=== PATIENT | female | born 1935 | race Hispanic/Latino ===

== ENCOUNTER 2018-12-02 16:05 | Inpatient (IN) | payer MEDICARE, OTHER ==
[~2018-12-02] VITALS: Ht 152.4 cm; Wt 54.7 kg
[2018-12-02] MEDS ORDERED: SODIUM CHLORIDE 0.9% 1000ML 1,000 ML IV STA (16:29)
--- NOTE | 2018-12-02 16:30 | NUR ---
RECEIVED REPORT FROM TRIAGE NURSE TO ASSUME PTS CARE. PT INTO ER6. GOWNED AND PLACED ON THE MONITOR
[2018-12-02] MEDS ORDERED: [UNRECOGNIZED DRUG - OTHER] PO (16:36)
[2018-12-02] MEDS ORDERED: NEXIUM40 MG PO (16:36)
[2018-12-02 17:27] LABS: CLARITY,URINE CLOUDY (CLEAR); COLOR,URINE YELLOW (YELLOW); KETONES,URINE TRACE (NEGATIVE); LEUKOCYTE ESTERASE ,URINE TRACE (NEGATIVE); NITRITE,URINE POSITIVE (NEGATIVE); PROTEIN,URINE DIPSTICK NEGATIVE (NEGATIVE); URINE UROBILINOGEN 4 mg/dL (0.2 - 1)
[2018-12-02 17:28] LABS: BILIRUBIN,URINE 1+ (NEGATIVE)
[2018-12-02 17:48] LABS: BACTERIA,URINE MANY /HPF; EPITHELIAL CELLS,URINE MODERATE /LPF; RBC,URINE 0-5 /HPF (0-5); WBC,URINE (MAN) 0-5 /HPF (0-5)
--- NOTE | 2018-12-02 18:30 | NUR ---
LAB CALLED AND SAID THAT ALL THE PATIENT BLOOD WE SENT WAS HEMOLYZED. DOC CHARGE NURSE RE-REID THE LABS
[2018-12-02 18:40] LABS: BASOPHILS # (AUTO) 0.1 (0.0-0.1); BASOPHILS % 0.6 % (0.0-1.0); EOSINOPHILS % 0.4 % (0.0-6.0); HEMATOCRIT 39.2 % (34.2-44.1); HEMOGLOBIN 13.6 g/dL (12.0-16.0); LYMPHOCYTES # (AUTO) 1.3 (1.0-3.2); LYMPHOCYTES % 15.2 % (18.0-39.1); MEAN CORPUSCULAR HEMOGLOBIN 30.6 pg (28-32); MEAN CORPUSCULAR HGB CONC 34.7 g/dL (31-35); MEAN CORPUSCULAR VOLUME 88.3 fL (81-99); MONOCYTES # (AUTO) 0.7 (0.2-0.8); MONOCYTES % 8.2 % (4.4-11.3); NEUTROPHILS # (AUTO) 6.1 (2.1-6.9); NEUTROPHILS % 73.7 % (38.7-80.0); PLATELET COUNT 247 x10e3/uL (140-360); RED BLOOD COUNT 4.44 x10e6/uL (3.6-5.1); RED CELL DISTRIBUTION WIDTH 13.6 % (11.7-14.4)
[2018-12-02 19:02] LABS: ALBUMIN 2.8 g/dL (3.5-5.0); ALBUMIN/GLOBULIN RATIO 0.9 (0.8-2.0); ANION GAP 18.8 mmol/L (8-16); CALCIUM 8.3 mg/dL (8.4-10.2); CREATININE, SERUM 0.91 mg/dL (0.57-1.11)
[2018-12-02 19:09] LABS: POTASSIUM 2.8 mmol/L (3.5-5.1)
[2018-12-02] MEDS ORDERED: POTASSIUM CHLORIDE 20 MEQ TAB CR PO ONE (19:15)
--- NOTE | 2018-12-02 21:04 | Diagnostic Imaging Report ---
EXAM: CT of the abdomen and pelvis WITH contrast HISTORY: Lower abdominal pain, diarrhea COMPARISON: None. TECHNIQUE: The abdomen and pelvis were scanned utilizing a multidetector helical scanner. Coronal and sagittal reformats are provided. PROTOCOL: Routine IV CONTRAST: 100 cc of Isovue-370. ORAL CONTRAST: None, which limits sensitivity and specificity of the exam. RADIATION DOSE: Total DLP: 510.61 mGy*cm Estimated effective dose: (DLP x 0.015 x size factor) Dose modulation, iterative reconstruction, and/or weight based adjustment of the mA/kV was utilized to reduce the radiation dose to as low as reasonably achievable. COMPLICATIONS: None FINDINGS: LOWER THORAX: Mild bibasilar atelectasis. A large hiatal hernia containing the proximal stomach. HEPATOBILIARY: No mass. No biliary dilation. The gallbladder is markedly distended, measuring nearly 5 cm in greatest diameter. SPLEEN: No splenomegaly. PANCREAS: No focal masses or ductal dilatation. Diffuse parenchymal atrophy. ADRENALS: No discrete adrenal nodule. KIDNEYS/URETERS: No hydronephrosis, stones, or definite solid mass lesions. 4.2 cm simple appearing cyst near the superior pole of the right kidney. Additional too small to characterize hypodensities in both kidneys likely reflect additional small cyst. PELVIC ORGANS/BLADDER: The visualized pelvic organs appear unremarkable. GI TRACT: Fluid within the lumen of the distal colon with mucosal enhancement. No bowel dilation. The appendix is normal. PERITONEUM / RETROPERITONEUM: No free air or fluid. LYMPH NODES: No pathologically enlarged lymph node. VESSELS: Diffuse scattered atherosclerotic vascular calcifications. BONES: Diffuse severely decreased mineralization of the osseous structures limits bone detail. Multilevel moderate to severe degenerative changes of the axial skeleton. SOFT TISSUES: Diffuse muscle atrophy. IMPRESSION: 1. Findings which could be seen in the setting of a colitis. 2. Large hiatal hernia. 3. Nonspecific marked distention of the gallbladder. If symptoms may be attributable to gallbladder, recommend a gallbladder ultrasound for further evaluation. 4. Severe bone demineralization. Signed by: Dr. Tristian Headley D.O., M.M.M. on 12/02/2018 9:01 PM
[2018-12-02] MEDS ORDERED: ONDANSETRON HCL INJ 2MG/ML 2ML 2 MG/ML VIAL IV PRN (22:00)
[2018-12-02] MEDS ORDERED: KCL 20MEQ/.9 SOD CHL 1,000 ML IV ONE (22:00)
[2018-12-02] MEDS: METRONIDAZOLE 500MG/NS 100ML 100 ML IV SCH (22:00)
[2018-12-02] MEDS ORDERED: IOPAMIDOL 370 MG/ML 200 ML INFUS..BTL INJ ONE (22:03)
[2018-12-02] MEDS ORDERED: SODIUM CHLORIDE 0.9% 50ML 50 ML ONE (22:03)
--- OUTSIDE RECORDS SUMMARY | 2018-12-02 22:27 | XMS REPORT ---
Author Author [facility] Address Unknown Phone Unavailable Care Team Providers Care Forest Fire Prevention Manager Name Role Phone Socorro VALENZUELA Unavailable Unavailable Problems This patient has no known problems. Allergies, Adverse Reactions, Alerts This patient has no known allergies or adverse reactions. Medications This patient has no known medications. Results Test Description Test Time Test Comments Text Results Atomic Results Result Comments CT ABDOMEN/PELVIS W 2018-12-02 20:51:00 [facility] [address] [address] Patient Name: ELSIE PALAFOX MR #: [id number] : 1935 Age/Sex: 83/F Req #: [id number] Adm Physician: Ordered by: RANDAL BRANTLEY CUT OUT AND MARKING MACHINE OPERATOR Report #: [id number] Location: ER Room/Bed: Procedure: [id number] CT/CT ABDOMEN/PELVIS W Exam Date: 12/02/18 Exam Time: 1810 REPORT STATUS: Signed EXAM: CT of the abdomen and pelvis WITH contrast HISTORY: Lower abdominal pain, diarrhea COMPARISON: None. TECHNIQUE: The abdomen and pelvis were scanned utilizing a multidetector helical scanner. Coronal and sagittal reformats are provided. PROTOCOL: Routine IV CONTRAST: 100 cc of Isovue-370. ORAL CONTRAST: None, which limits sensitivity and specificity of the exam. RAD IATION DOSE: Total DLP: 510.61 mGy*cm Estimated effective dose: (DLP x 0.015 x size factor) Dose modulation, iterative reconstruction, and/or weight based adjustment of the mA/kV was utilized to reduce the radiation dose to as low as reasonably achievable. COMPLICATIONS: None FINDINGS: LOWER THORAX: Mild bibasilar atelectasis. A large hiatal hernia containing the proximal stomach. HEPATOBILIARY: No mass. No biliary dilation. The gallbladder is markedly distended, measuring nearly 5 cm in greatest diameter. SPLEEN: No splenomeg iva. PANCREAS: No focal masses or ductal dilatation. Diffuse parenchymal atrophy. ADRENALS: No discrete adrenal nodule. KIDNEYS/URETERS: No hydronephrosis, stones, or definite solid mass lesions. 4.2 cm simple appearing cyst near the superior pole of the right kidney. Additional too small to characterize hypodensities in both kidneys likely reflect additional small cyst. PELVIC ORGANS/BLADDER: The visualized pelvic organs appear unremarkable. GI TRACT: Fluid within the lumen of the distal colon with mucosal enhancement. No bowel dilation. The appendix is normal. PERITONEUM / RETROPERITONEUM: No free air or fluid. LYMPH NODES: No pathologically enlarged lymph node. VESSELS: Diffuse scattered atherosclerotic vascular calcifications. BONES: Diffuse severely decreased mineralization of the osseous structures limits bone detail. Multilevel moderate to severe degenerative changes of the axial skeleton. SOFT TISSUES: Diffuse muscle atrophy. IMPRESSION: 1. Findings which could be seen in the setting of a colitis. 2. Large hiatal hernia. 3. Nonspecific marked distention of the gallbladder. If symptoms may be attributable to gallbladder, recommend a gallbladder ultrasound for further evaluation. 4. Severe bone demineralization. Signed by: Dr. Oneil Headley D.O., M.M.M. on 12/02/2018 9:01 PM Dictated By: ONEIL HEADLEY DO 00 Transcribed By: MICHAEL on 12/02/182100 COPY TO: RANDAL BRANTLEY NP
[2018-12-02 22:50] VITALS: BP 96/53
--- NOTE | 2018-12-02 22:50 | NUR ---
patient recieved to room 296 via wheelchair from the er. vs stable. no c/o pain noted at this time. ivf initiated per orders. patient ambulatory to bathroom with assistance. patient voids without difficulty. admit assessment/history obtained. granddaughter at the bedside. granddaughter not aware of pneumonia and flu vaccines. says she will verify this with patients daughter tomorrow. side rails up x 3. bed alarm on for safety and granddaughter will remain at bedside tonight.patient/family instructed to call for assistance when needed.
[2018-12-02] MEDS: LEVOFLOXACIN 500MG/D5W 100ML IV SCH (23:10)
--- NOTE | 2018-12-02 23:25 | Diagnostic Imaging Report ---
EXAM: Right Upper Quadrant Ultrasound INDICATION: ^abdominal pain ^[id number] ^2234 ^Y COMPARISON: CT dated 12/02/2018 TECHNIQUE: Transverse and longitudinal images of the right upper abdomen were obtained. FINDINGS: Liver: Size: 11.6 cm in the right midclavicular line, normal Appearance: Normal echogenicity, smooth contour Mass: No focal masses Gallbladder: Stones/Sludge: Sludge present. Wall: 0.3 cm Appearance: No pericholecystic fluid. Hydropic gallbladder. Sonographic Ruano's Sign: Negative Bile Ducts: Intrahepatic Ducts: No dilatation Extrahepatic Ducts: Common bile duct measures 0.5 cm, no dilatation Pancreas: Obscured by bowel gas. Right Kidney: Size: 9.3 cm Echogenicity: Normal Parenchymal thickness: Normal Collecting system: No hydronephrosis Stones: None Cyst/Mass: 4.5 x 4.6 x 3.7 cm upper pole cyst Vessels: Aorta: Obscured by bowel gas. Inferior Vena Cava: Visualized portions are normal Main Portal Vein: 0.8 cm, normal size with hepatopetal flow. Free Fluid: No ascites or pleural effusion IMPRESSION: Hydropic gallbladder, containing sludge. No cholelithiasis or pericholecystic fluid. Signed by: Dr. Nicolas Zelaya MD on 12/02/2018 11:21 PM
[2018-12-03] VITALS: BP 96/53
--- NOTE | 2018-12-03 01:00 | NUR ---
patient ambulatory to bathroom with assistance. patient voids without difficulty. lrg loose bm noted. no c/o pain noted at this time.
[2018-12-03 04:00] VITALS: BP 101/50
--- NOTE | 2018-12-03 04:00 | NUR ---
new iv #22 gauge placed to right wrist x 1 stick. iv fluids continue to infuse without difficulty. iv to left ac d/c'd due to swelling at site. clean dry dressing applied to site.
[2018-12-03] MEDS: METRONIDAZOLE 500MG/NS 100ML 100 ML IV SCH ×5 (05:18→23:27)
[2018-12-03 06:08] LABS: BASOPHILS % 0.5 % (0.0-1.0); EOSINOPHILS % 0.2 % (0.0-6.0); HEMATOCRIT 35.1 % (34.2-44.1); HEMOGLOBIN 11.9 g/dL (12.0-16.0); LYMPHOCYTES # (AUTO) 0.8 (1.0-3.2); LYMPHOCYTES % 14.2 % (18.0-39.1); MEAN CORPUSCULAR HEMOGLOBIN 30.6 pg (28-32); MEAN CORPUSCULAR HGB CONC 33.9 g/dL (31-35); MEAN CORPUSCULAR VOLUME 90.2 fL (81-99); MONOCYTES # (AUTO) 0.6 (0.2-0.8); MONOCYTES % 10.3 % (4.4-11.3); NEUTROPHILS # (AUTO) 4.4 (2.1-6.9); NEUTROPHILS % 73.4 % (38.7-80.0); PLATELET COUNT 206 x10e3/uL (140-360); RED BLOOD COUNT 3.89 x10e6/uL (3.6-5.1); RED CELL DISTRIBUTION WIDTH 13.7 % (11.7-14.4)
[2018-12-03 06:37] LABS: ALANINE AMINOTRANSFERASE 8 IU/L (0-55); ALBUMIN 2.3 g/dL (3.5-5.0); ALBUMIN/GLOBULIN RATIO 0.8 (0.8-2.0); ALKALINE PHOSPHATASE 69 IU/L (40-150); ANION GAP 15.3 mmol/L (8-16); BLOOD UREA NITROGEN 26 mg/dL (7-26); BUN/CREATININE RATIO 36 (6-25); CALCIUM 7.5 mg/dL (8.4-10.2); CARBON DIOXIDE 19 mmol/L (22-29); CHLORIDE 106 mmol/L (98-107); CREATININE, SERUM 0.73 mg/dL (0.57-1.11); EST GLOMERULAR FILTRATION RATE > 60 ML/MIN (60-); GLUCOSE 80 mg/dL (74-118); POTASSIUM 3.3 mmol/L (3.5-5.1); SODIUM 137 mmol/L (136-145)
--- NOTE | 2018-12-03 07:17 | NUR ---
History and PHysical cc: abdominal pain and diarrhea HPI; 83yoF, PCP??, developed diarrhea for 2 weeks, >7 watery stools per day, here for mgmt; Imaging shows colitis. Hx per granddaughter at bedside. PMH: HTN, GERD PHSx: hysterectomy Allerigies; see erm Fh/SH; ; lives with daughter; no cigs/etoh/illicits Meds; see MAR ROS; no cp/sob/f/c/s/N/V/CULLEN/vision changes V/S: rev'd PE: tired appearing anicteric ns1s2; no m soft ND; LOWER ABDOMEN TENDER; no rebound/guarding no e/t skin dry flat affect A&Ox3; buckley labs/meds; rev'd A/P: 83yoF Acute colitis SAMANTHA Hypokalemia Metabolic acidosis UTi Gallbladder disease Hiatal hernia Dehydration PLAN IVF IV abx f/u cx; NPO today SCD d/w granddaughter at bedside. Janak Wharton MD, PhD.
[2018-12-03 07:30] VITALS: BP 119/69
--- NOTE | 2018-12-03 07:35 | NUR ---
ASSISTED PT UP TO BR,HAD LIQUID STOOL ,SAMPLE SENT TO LAB
[2018-12-03 08:00] VITALS: BP 119/69
[2018-12-03 12:03] VITALS: BP 95/69
[2018-12-03] MEDS ORDERED: SODIUM CHLORIDE 0.9% 1000ML 1,000 ML ONE (12:20)
--- NOTE | 2018-12-03 18:01 | NUR ---
PT IN BED RESTING NO DISTRESS NOTED
--- NOTE | 2018-12-03 19:00 | NUR ---
patient received awake, alert, lying quietly in bed. no c/o pain noted. ivf continue to infuse without difficulty. pm assessment complete. many family members noted at the bedside. patient/family instructed to call for assistance when needed.
[2018-12-03 20:00] VITALS: BP 111/52
[2018-12-03] MEDS: LEVOFLOXACIN 500MG/D5W 100ML IV SCH (21:15)
[2018-12-03] MEDS: SODIUM CHLORIDE 0.9% 1000ML 1,000 ML IV SCH (22:20)
[2018-12-03] MEDS ORDERED: ACETAMINOPHEN 325 MG TAB ONE (22:48)
[2018-12-03] MEDS: ACETAMINOPHEN 325 MG TAB PO PRN (22:51)
[2018-12-04] VITALS (8 sets, daily range): BP systolic 99–129; BP diastolic 51–63
--- NOTE | 2018-12-04 | NUR ---
patient oob to bs with assistance. patient voids without difficulty. patient continues to have small frequent loose bm's. skin care provided. no c/o pain noted at this time.
[2018-12-04] MEDS: METRONIDAZOLE 500MG/NS 100ML 100 ML IV SCH ×4 (05:23→23:41)
--- NOTE | 2018-12-04 06:30 | NUR ---
IM- Progress Note O/N; no events ROS; no cp/sob/f/c/s/N/V/CULLEN/vision changes V/S: rev'd PE: tired appearing anicteric ns1s2; no m soft ND; LOWER ABDOMEN TENDER; no rebound/guarding no e/t skin dry flat affect A&Ox3; buckley labs/meds; rev'd A/P: 83yoF Acute colitis SAMANTHA Hypokalemia Metabolic acidosis UTi Gallbladder disease Hiatal hernia Dehydration PLAN IVF IV abx f/u cx; NPO today SCD d/w granddaughter at bedside. 12/04 check lytes; c.diff negative; start CLD. Janak Wharton MD, PhD.
[2018-12-04 07:45] LABS: BLOOD UREA NITROGEN 14 mg/dL (7-26); BUN/CREATININE RATIO 20 (6-25); CALCIUM 7.6 mg/dL (8.4-10.2); CARBON DIOXIDE 17 mmol/L (22-29); CHLORIDE 109 mmol/L (98-107); EST GLOMERULAR FILTRATION RATE > 60 ML/MIN (60-); PHOSPHORUS 2.7 MG/DL (2.3-4.7); SODIUM 141 mmol/L (136-145)
[2018-12-04 07:48] LABS: GLUCOSE 51 mg/dL (74-118); MAGNESIUM 0.9 MG/DL (1.3-2.1)
[2018-12-04] MEDS ORDERED: LOPERAMIDE HCL 2 MG CAP PO NR (08:00)
--- NOTE | 2018-12-04 08:09 | NUR ---
SPOKE WITH MD REGARDING ABNORMAL LAB RESULT, NEW ORDERS RECEIVED. PATIENT IN BED RESTING WITH HEAD OF BED ELEVATED. BED IN LOWER POSITION, CALL LIGHT AT REACH. FAMILY AT BED SIDE.
[2018-12-04] MEDS ORDERED: MAGNESIUM SULFATE 2GM/50ML 50 ML IV ONE (08:15)
[2018-12-04] MEDS ORDERED: POTASSIUM CHLORIDE 20 MEQ TAB CR PO NR (08:30)
[2018-12-04] MEDS: BALSAM PERU/CASTOR OIL 60 GM OINT...G. TP SCH ×2 (09:26→17:27)
--- NOTE | 2018-12-04 10:30 | NUR ---
PATIENT NOTED WITH BLOOD SUGAR OF 54, NO S/S OF HYPOGLYCEMIA NOTED. ORANGE JUICE GIVEN AND WELL TOLERATED. BLOOD SUGAR RECHECKED WITH THE READING OF 99. MD NOTIFIED, NO NEW ORDER RECEIVED. WILL CLOSELY MONITOR.
[2018-12-04] MEDS: SODIUM CHLORIDE 0.9% 1000ML 1,000 ML IV SCH (12:54)
[2018-12-04] MEDS: LOPERAMIDE HCL 2 MG CAP PO PRN ×2 (15:45→23:41)
--- NOTE | 2018-12-04 15:46 | NUR ---
PATIENT ASSISTED TO THE BED SIDE COMMODE AND BACK TO BED. HAD A LOOSE STOOL. PRN IMODIUM GIVEN ORDERED. WILL CONTINUE TO MONITOR.
--- NOTE | 2018-12-04 17:01 | NUR ---
CASE MANAGEMENT INITIAL ASSESSMENT Chargeback Specialist to bedside to discuss plan of care with patient/family. CM/SW role and care transitions discussed. Anticipated discharge plan discussed along with duration of care. CM/SW discussed patients right to make decisions in care. CM/SW work hours given. Patient lives: NEXT DOOR TO DTR LUIS MIGUEL IN AN APT; 1ST FLOOR Admit/Transfer: ER Hospital/ER visits since last admit: NONE POA/Emergency contact: PRAVEENA JAVY / [phone] Current/Previous Home Health: NONE PCP/Follow-up Care: DR. STEVE HERNANDEZ Current/Previous DME: BRYCE BENSON, FRANK, SALLY Other Services: HOUSING Employment Status: RETIRED Areas of Concerns: NEEDS DME AFTER DC Referral Needs: HOSPITAL BED, [facility] Education Needs: IV ABX AT HOME VS SNF IMM/GREEN given and signed (if applicable): SIGNED Goal for discharge: RETURN HOME SAFELY W/O DIARRHEA CM/SW left business card at the bedside with contact information. Name and number was also written on the patients whiteboard. Patient verbalized understanding of discussion. CM will follow-up with ongoing discharge and transition of care needs.
[2018-12-04 18:15] LABS: MAGNESIUM 1.7 MG/DL (1.3-2.1); POTASSIUM 3.8 mmol/L (3.5-5.1)
--- NOTE | 2018-12-04 19:06 | NUR ---
patient received awake, alert, lying quietly in bed. no c/o pain noted. ivf continue to infuse without difficulty. pm assessment complete. family noted at the bedside. patient/family instructed to call for assistance when needed.
[2018-12-04] MEDS: LEVOFLOXACIN 500MG/D5W 100ML IV SCH (22:00)
--- NOTE | 2018-12-04 23:41 | NUR ---
patient continues to have small frequent watery stools. imodium 2 mg po given at this time.
[2018-12-05] VITALS (9 sets, daily range): BP systolic 106–131; BP diastolic 56–65
[2018-12-05] MEDS: SODIUM CHLORIDE 0.9% 1000ML 1,000 ML IV SCH ×3 (03:00→20:54)
[2018-12-05] MEDS: METRONIDAZOLE 500MG/NS 100ML 100 ML IV SCH ×3 (06:00→18:25)
--- NOTE | 2018-12-05 07:10 | NUR ---
PATIENT IN BED RESTING WITH NO RESPIRATORY DISTRESS. ALL PERSONAL ITEMS CLOSE TO PATIENT, CALL LIGHT AT REACH.
[2018-12-05] MEDS: BALSAM PERU/CASTOR OIL 60 GM OINT...G. TP SCH ×2 (09:05→17:19)
[2018-12-05] MEDS: ACETAMINOPHEN 325 MG TAB PO PRN (09:10)
--- NOTE | 2018-12-05 10:32 | NUR ---
IM- Progress Note O/N; no events ROS; no cp/sob/f/c/s/N/V/CULLEN/vision changes V/S: rev'd PE: tired appearing anicteric ns1s2; no m soft ND; LOWER ABDOMEN TENDER; no rebound/guarding no e/t skin dry flat affect A&Ox3; buckley labs/meds; rev'd A/P: 83yoF Acute colitis SAMANTHA Hypokalemia Metabolic acidosis UTi Gallbladder disease Hiatal hernia Dehydration PLAN IVF IV abx f/u cx; NPO today SCD d/w granddaughter at bedside. 12/04 check lytes; c.diff negative; start CLD. 12/05 check labs Janak Wharton MD, PhD.
[2018-12-05 11:05] LABS: BASOPHILS # (AUTO) 0.1 (0.0-0.1); EOSINOPHILS % 0.8 % (0.0-6.0); HEMATOCRIT 33.4 % (34.2-44.1); HEMOGLOBIN 10.9 g/dL (12.0-16.0); LYMPHOCYTES # (AUTO) 0.6 (1.0-3.2); LYMPHOCYTES % 10.6 % (18.0-39.1); MEAN CORPUSCULAR HGB CONC 32.6 g/dL (31-35); MONOCYTES # (AUTO) 0.4 (0.2-0.8); MONOCYTES % 7.1 % (4.4-11.3); NEUTROPHILS # (AUTO) 3.8 (2.1-6.9); NEUTROPHILS % 73.4 % (38.7-80.0); PLATELET COUNT 183 x10e3/uL (140-360); RED BLOOD COUNT 3.63 x10e6/uL (3.6-5.1); RED CELL DISTRIBUTION WIDTH 14.4 % (11.7-14.4)
[2018-12-05 11:24] LABS: ANION GAP 9.3 mmol/L (8-16); BLOOD UREA NITROGEN 6 mg/dL (7-26); BUN/CREATININE RATIO 9 (6-25); CALCIUM 7.7 mg/dL (8.4-10.2); CARBON DIOXIDE 19 mmol/L (22-29); CHLORIDE 115 mmol/L (98-107); CREATININE, SERUM 0.64 mg/dL (0.57-1.11); EST GLOMERULAR FILTRATION RATE > 60 ML/MIN (60-); GLUCOSE 106 mg/dL (74-118); POTASSIUM 3.3 mmol/L (3.5-5.1); SODIUM 140 mmol/L (136-145)
[2018-12-05] MEDS ORDERED: TRAMADOL HCL 50 MG TAB PO PRN (12:30)
[2018-12-05] MEDS ORDERED: ZOLPIDEM TARTRATE 5 MG TAB PO PRN (12:30)
--- NOTE | 2018-12-05 15:45 | NUR ---
PATIENT ASSISTED TO THE BED SIDE COMMODE AND BACK TO BED. VOIDED SMALL AMOUNT OF YELLOW URINE. IN BED WITH CALL LIGHT AT REACH.
--- NOTE | 2018-12-05 18:25 | NUR ---
MD CALL REGARDING ABNORMAL LAB RESULT, MESSAGE LEFT TO VOICE MAIL. AWAITING CALL BACK.
--- NOTE | 2018-12-05 18:57 | NUR ---
CALL BACK RECEIVED FROM , NOTIFIED ABOUT ABNORMAL LAB RESULT, NEW ORDER RECEIVED.
[2018-12-05] MEDS ORDERED: POTASSIUM CHLORIDE 20 MEQ TAB CR PO NR (19:00)
--- NOTE | 2018-12-05 19:12 | NUR ---
Report received and walking rounds complete. Pt resting in bed and in no apparent distress. Family members at bedside. Pt on RA and no tele. All safety measures ensured and pt call edwards near.
[2018-12-05] MEDS: LEVOFLOXACIN 500MG/D5W 100ML IV SCH (23:00)
[2018-12-06] MEDS: METRONIDAZOLE 500MG/NS 100ML 100 ML IV SCH ×4 (00:37→18:15)
[2018-12-06 04:15] VITALS: BP 137/64
--- NOTE | 2018-12-06 07:08 | NUR ---
Report given and walking rounds completed
--- NOTE | 2018-12-06 07:23 | NUR ---
PATIENT IN BED RESTING WITH EYES CLOSED, NO RESPIRATORY DISTRESS OBSERVED. SWELLING NOTED TO ARMS, ELEVATED ON PILLOW. BED IN LOWER POSITION, CALL LIGHT AT REACH, FAMILY AT BED SIDE.
[2018-12-06 07:30] VITALS: BP 117/59
[2018-12-06 08:16] VITALS: BP 117/59
[2018-12-06] MEDS: BALSAM PERU/CASTOR OIL 60 GM OINT...G. TP SCH ×2 (09:14→17:23)
--- NOTE | 2018-12-06 11:50 | NUR ---
PATIENT OUT OF BED TO CHAIR TALKING TO FAMILY MEMBERS VISITING. CALL LIGHT AT REACH.
[2018-12-06 11:59] VITALS: BP 128/66
--- NOTE | 2018-12-06 14:30 | NUR ---
Visit made by the Spiritual Care Department Pastoral Visitor, Abhi Kim. PV provided pastoral presence, hospitality, and supportive listening. PV provided communion for pt's daughters. Pastoral Visitor informed pt/family of the scope of Coding Educator Services and availability. ALEKS SÁNCHEZ [facility] Spiritual Care Department O: [phone] Pager: [phone] ([phone] number calling from)
--- NOTE | 2018-12-06 14:31 | NUR ---
IM- Progress Note O/N; no events ROS; no cp/sob/f/c/s/N/V/CULLEN/vision changes V/S: rev'd PE: tired appearing anicteric ns1s2; no m soft ND; LOWER ABDOMEN TENDER; no rebound/guarding no e/t skin dry flat affect A&Ox3; buckley labs/meds; rev'd A/P: 83yoF Acute colitis SAMANTHA Hypokalemia Metabolic acidosis UTi Gallbladder disease Hiatal hernia Dehydration PLAN IVF IV abx f/u cx; NPO today SCD d/w granddaughter at bedside. 12/04 check lytes; c.diff negative; start CLD. 12/05 check labs 12/06 check labs; cont abx; advance diet as tolerated. Janak Wharton MD, PhD.
[2018-12-06 15:20] LABS: ANION GAP 9.8 mmol/L (8-16); BLOOD UREA NITROGEN < 5 mg/dL (7-26); BUN/CREATININE RATIO 8 (6-25); CALCIUM 7.9 mg/dL (8.4-10.2); CARBON DIOXIDE 20 mmol/L (22-29); CHLORIDE 115 mmol/L (98-107); CREATININE, SERUM 0.62 mg/dL (0.57-1.11); EST GLOMERULAR FILTRATION RATE > 60 ML/MIN (60-); GLUCOSE 92 mg/dL (74-118); POTASSIUM 3.8 mmol/L (3.5-5.1); SODIUM 141 mmol/L (136-145)
--- NOTE | 2018-12-06 15:40 | NUR ---
PATIENT ASSISTED WITH DIAPER CHANGE. HAD A BM, REPOSITIONED IN BED . CALL LIGHT AT REACH.
[2018-12-06 15:59] VITALS: BP 117/64
--- NOTE | 2018-12-06 19:44 | NUR ---
Report received and walking rounds complete. Pt resting in bed and in no apparent distress. Pt family at bedside.
[2018-12-06 21:08] VITALS: BP 127/68
[2018-12-06] MEDS: LEVOFLOXACIN 500MG/D5W 100ML IV SCH (22:25)
[2018-12-06] MEDS: SODIUM CHLORIDE 0.9% 1000ML 1,000 ML IV SCH (23:29)
[2018-12-07] MEDS: METRONIDAZOLE 500MG/NS 100ML 100 ML IV SCH ×3 (00:25→12:00)
[2018-12-07 00:52] VITALS: BP 125/65
[2018-12-07 06:04] VITALS: BP 117/64
--- NOTE | 2018-12-07 07:06 | NUR ---
report given and walking rounds complete. pt sleeping and in no apparent distress. Pt family at bedside.
[2018-12-07 07:45] VITALS: BP 131/71
[2018-12-07 08:07] VITALS: BP 131/71
[2018-12-07] MEDS: BALSAM PERU/CASTOR OIL 60 GM OINT...G. TP SCH ×2 (09:00→17:00)
--- NOTE | 2018-12-07 10:48 | NUR ---
DC PLANNING: MET W PT AND DTRS AT THE BEDSIDE. STATES THE PT IS TAKING A REGULAR DIET STARTING TODAY. IMM LETTER WAS SIGNED. COPY TO PT AND COPY TO CHART.
[2018-12-07 12:00] VITALS: BP 143/69
--- NOTE | 2018-12-07 14:07 | NUR ---
Discharge summary: A/P: 83yoF Acute colitis SAMANTHA Hypokalemia Metabolic acidosis UTi Gallbladder disease Hiatal hernia Dehydration PLAN IVF IV abx f/u cx; NPO today SCD d/w granddaughter at bedside. 12/04 check lytes; c.diff negative; start CLD. 12/05 check labs 12/06 check labs; cont abx; advance diet as tolerated. 12/07 advance diet; f/u pcp 1 week d/c home d/c >35mins Stable; Janak Wharton MD, PhD.
[2018-12-07] MEDS ORDERED: ZOFRAN4 MG PO (14:14)
[2018-12-07] MEDS ORDERED: FLAGYL500 MG PO (14:14)
[2018-12-07] MEDS ORDERED: IMODIUM2 MG PO (14:14)
--- NOTE | 2018-12-07 15:25 | NUR ---
MET W THE DTRS AT THE BEDSIDE. IMM LETTER EXPLAINED AND COPY IN ROMAN[place] GIVEN TO FAMILY AND COPY TO CHART.
[2018-12-07 15:45] LABS: ANION GAP 10.8 mmol/L (8-16); BLOOD UREA NITROGEN < 5 mg/dL (7-26); BUN/CREATININE RATIO 9 (6-25); CALCIUM 7.9 mg/dL (8.4-10.2); CARBON DIOXIDE 18 mmol/L (22-29); CHLORIDE 111 mmol/L (98-107); CREATININE, SERUM 0.58 mg/dL (0.57-1.11); EST GLOMERULAR FILTRATION RATE > 60 ML/MIN (60-); GLUCOSE 101 mg/dL (74-118); MAGNESIUM 1.2 MG/DL (1.3-2.1); POTASSIUM 3.8 mmol/L (3.5-5.1); SODIUM 136 mmol/L (136-145)
[2018-12-07 16:00] VITALS: BP 128/60
--- NOTE | 2018-12-07 16:00 | NUR ---
SPOKE WITH DR THOMPSON REGARDING LABS ORDERS WRITTEN,INFORMED OF SMALL DIARRHEA STOOL,OK TO DISCHARGE.
[2018-12-07] MEDS ORDERED: MAGNESIUM SULFATE 2GM/50ML 50 ML IV ONE (16:30)
[2018-12-07] MEDS ORDERED: SODIUM BICARBONATE 650 MG TAB PO ONE (16:30)
--- NOTE | 2018-12-07 18:34 | NUR ---
PT DISCHARGED HOME IV DCD WITHOUT REDNESS OR SWELLING,PRESCRIPTIONS AND INSTRUCTIONS GIVEN COPY ON CHART,ASSISTED UP TO W/C.
--- NOTE | 2018-12-07 18:35 | NUR ---
TRANSPORTED TO AUTO VIA W/C
== END 2018-12-07 18:31 | disposition home or self-care (01) | DRG 392 ==
LOC: ER 16:05 → ERHOLD 22:24 → MED/SURG3 22:52
PROVIDERS: ADMIT Internal Medicine; ATTEND Internal Medicine
DX: A09 Infectious gastroenteritis and colitis, unspecified (principal); N17.9 Acute kidney failure, unspecified; E87.2 Acidosis; N39.0 Urinary tract infection, site not specified; E87.6 Hypokalemia; K21.9 Gastro-esophageal reflux disease without esophagitis; G20 Parkinson's disease; I10 Essential (primary) hypertension; K44.9 Diaphragmatic hernia without obstruction or gangrene; E86.0 Dehydration
CPT/HCPCS: 36415; 74177; 76705; 80048; 80053; 81001; 82150; 82948; 83690; 83735; 84100; 84132; 85025; 87493; 99284; J1956; J2405; J3475; J7030; Q9967

== ENCOUNTER 2021-03-02 00:46 | Emergency (ER) | payer MEDICARE ==
[~2021-03-02] VITALS: Ht 152.4 cm; Wt 54.4 kg
[~2021-03-02 00:46] MED LIST: FLAGYL500 MG PO; IMODIUM2 MG PO; NEXIUM40 MG PO; ZOFRAN4 MG PO; [UNRECOGNIZED DRUG - OTHER] PO
== END 2021-03-02 05:05 | disposition home or self-care (01) ==
LOC: ER 01:33
DX: M16.0 Bilateral primary osteoarthritis of hip (principal); M17.0 Bilateral primary osteoarthritis of knee; I10 Essential (primary) hypertension; G20 Parkinson's disease; K21.9 Gastro-esophageal reflux disease without esophagitis
CPT/HCPCS: 73522; 99283